=== PATIENT | female | born 1995 | race Caucasian/White ===

== ENCOUNTER 2018-01-15 00:32 | Outpatient (CLI) | payer MEDICAID, SELFPAY ==
--- NOTE | 2018-01-15 08:38 | DI.US_ITS ---
SYMPTOMS/DIAGNOSIS: DECREASED MOVEMENT, Z33.1 OB ULTRASOUND: Many abnormalities cannot be diagnosed. A normal exam does not exclude a congenital anomaly. Radiology No. [id number] LMP: Exam Date: 01/15/18 [facility] wks days on EDC ([facility]) 04/07/18 Confirmed: HISTORY: ---- PREDICTED GESTATIONAL AGE NUMBER 28+2 weeks with a range of 27+2 weeks to 29+2 weeks. 1 Determined by_X__1ST US___LMP___HISTORY Info. pertaining to fetus # PLACENTA PRESENTATION Grade I-II Cephalic_X__ Anterior___Posterior_X__ Breech____ Right Left Transverse(head right___ Fundal___Low-lying___Previa___ Transverse(head left___ Varying BIOMETRY AMNIOTIC FLUID BPD: 70 mm 28 weeks Normal HC: 261 mm 28+3 weeks AC: 234 mm 27+5 weeks FL: 54 mm 27+5 weeks AMNIOTIC FLUID INDEX >26 WK CRL: mm weeks Cisterna Magna: mm CI: 78 RUQ: 3.5 LUQ: 3.2 Cerebellum: cm EFW: 1188 grams Percentile: 33rd RLQ: 2.8 LLQ: 3.3 Total: 12.8 cm Composite AGE= 28+2 wks EDC by US: 04/07/18 BIOPHYSICAL PROFILE ANATOMY IDENTIFIED SCORE 0/2 Heart: 4-Chamber___Rate:BPM 160 LVOT: RVOT: Amniotic Fluid(>2cms)____ Stomach: Kidneys: Respirations (>30 secs) Bladder: Post. Fossa: Body Flex/Extension 3 vessel cord: Ventricles: cord insertion: Lips:____ Extremity Flex/Extension spinal morphology: Nose: Total Score= Palate: NS=not seen COMMENTS: OB ultrasound was performed utilizing third trimester protocol. biometry is consistent with gestational age of 28 weeks 2 days and an EDC of 04/07/18. The estimated weight is 1188 g, which is at the 33rd percentile for predicted gestational age. Placenta is posterior with no evidence of placenta previa. Normal quantity of amniotic fluid observed and the RUPESH is 13. cardiac activity observed at a rate of 160 bpm. There was reportedly a question of decreased movement. Normal movement was observed throughout this examination.
[2018-01-15 08:47] LABS: HGB 12.3 g/dL (12.0-15.5); Mean Corp. HGB Concentration 34.2 g/dL (32.0-36.0); Mean Corpuscular Hemoglobin 33.3 pg (27.0-33.0); Mean Corpuscular Volume 97.6 fL (80-95); Mean Platelet Volume 10.6 fL (8.0-11.0); Platelet Count 234 x1000/uL (130-400); RBC 3.69 m/cumm (4.00-5.20); RBC Distribution Width 12.6 % (11.7-14.6); White Blood Cell Count 11.98 k/cumm (4.4-10.8)
[2018-01-15 08:52] LABS: Glucose,1 Hr (Glucola) 112 mg/dL (80-140)
== END 2018-01-15 00:52 ==
PROVIDERS: Nurse Practitioner Women's Health; PCP Family Medicine; Visit Provider Obstetrics & Gynecology
DX: Z34.93 Encounter for supervision of normal pregnancy, unspecified, third trimester (principal); O36.8131 Decreased fetal movements, third trimester, fetus 1
CPT/HCPCS: 36415; 76816; 82950; 85027

== ENCOUNTER 2018-01-26 10:09 | Emergency (ER) | payer MEDICAID, SELFPAY ==
[2018-01-26 10:11] VITALS: BP 139/75; PULSE 92; RESP 20; TEMP 36.8; O2SAT 100
--- NOTE | 2018-01-26 10:34 | W.ED.GENAD ---
Discharge Plan Disposition Patient Disposition: HOME Condition: Stable Discharge Details Chief Complaint: RespSymp Clinical Impression: URI (upper respiratory infection), Conjunctivitis Primary Care Provider: CHARLENE VENTURA ED Provider: Ramin Reynolds Home Meds and New Rx's Prescriptions: New erythromycin 5 mg/gram (0.5 %) ointment 0.5 inch OP QID 5 Days RF: 0 Continue albuterol sulfate 8.5 GM HFA aerosol inhaler 2 puff Inhalation ONCE RF: 0 PNV cmb#95-ferrous fumarate-FA [] 1 EACH tablet 1 ea PO DAILY 30 Days Qty: 30 RF: 6 ondansetron [Zofran ODT] 4 MG tablet,disintegrating 4 mg PO Q6H PRN 30 Days Qty: 30 RF: 1 hydroxyprogest(PF)(preg presv) 250 mg/mL (1 mL) oil 250 mg IM QWEEK Qty: 1 RF: 0 Discharge Instructions Instructions: Upper Respiratory Infection (ED), Conjunctivitis (ED) Additional Instructions: You may take acetaminophen as needed for any fever or discomfort otherwise stay well-hydrated and get plenty of rest during illness. Continue to place warm compresses on your affected eye and you may use pxtn-ibe-ktiudlc saline eyedrops to help with hydration. If you are not having improvement of your red eye symptoms in the next 24-48 hours you may begin the antibiotics at that time. Follow-up with your primary care provider if not improving over the next week otherwise return immediately to the emergency department for new or significant worsening of symptoms. Referrals: CHARLENE VENTURA [Primary Care Provider] - Medical Decision Making Patient presenting to the emergency department with chief complaint of left eye pain and cold symptoms. Patient states the started 3 days ago and feels that she may have caught the illness from her son. She is 30 weeks and called [facility] whom instructed her to get follow-up. Patient did call primary care office but they said they could see her this afternoon but she was concerned about driving to their office so came immediately to the emergency department. Physical exam does show injection of the medial aspect of the left, nasal congestion with sinus tenderness, and mild oropharynx posterior erythema, mild anterior cervical lymphadenopathy. Lungs are clear with no other symptoms. I feel more likely symptoms are viral in etiology and have no concern for bronchitis pneumonia or significant illness. Given that left eye does show some injection I discussed with patient risk versus benefit of antibiotics for conjunctivitis. I do feel that this is viral in etiology but patient was given prescription for erythromycin ointment but informed that she should wait 24-48 hours before beginning this as I do feel that her symptoms will resolve on their own and is self-limiting. Patient strongly encouraged to follow-up with primary care if not improving over the next week or to return for any new or significant worsening of symptoms. After discussion of diagnosis and plan of care patient has no further needs, questions, or concerns and states clear understanding to return to the emergency department for any worsening symptoms. HPI General Mode of arrival: ambulatory. Date/Time Provider Initiated Documentation: 01/26/18 10:17. Limitations to Documentation: no limitations. Information obtained by: patient and RN notes reviewed. History of Present Illness 22 year old F presents to the emergency department with the chief complaint of cough and cold symptoms, described as moderate, with intensity rated at 8. Quality is described as aching, Patient started experiencing this day(s) (3) and it has been constant. No relieving factors improve symptom(s), No exacerbating factors reported . Patient did receive the following treatments prior to arrival, none Related Data Home Medications Medication Instructions Recorded Confirmed albuterol sulfate 2 puff INHALATION ONCE inhaler 09/07/13 01/26/18 PNV cmb#95-ferrous fumarate-FA 1 ea PO DAILY 30 Days #30 tab 07/30/17 01/26/18 [] ondansetron [Zofran ODT] 4 mg PO Q6H PRN 30 Days #30 tab 08/20/17 01/26/18 hydroxyprogesterone (PF)( 250 mg IM QWEEK #1 ml 11/26/17 01/26/18 preserving) 250 mg/mL (1 mL) IM oil erythromycin 0.5 inch OP QID 5 Days gm 01/26/18 Previous Rx's Medication Instructions Recorded PNV cmb#95-ferrous fumarate-FA 1 ea PO DAILY 30 Days #30 tab 07/30/17 [] ondansetron [Zofran ODT] 4 mg PO Q6H PRN 30 Days #30 tab 08/20/17 hydroxyprogesterone (PF)( 250 mg IM QWEEK #1 ml 11/26/17 preserving) 250 mg/mL (1 mL) IM oil erythromycin 0.5 inch OP QID 5 Days gm 01/26/18 Allergies Allergy/AdvReac Type Severity Reaction Status Date / Time Penicillins Allergy Severe Anaphylaxsi Verified 01/26/18 10:15 s ibuprofen [From Advil] Allergy Intermediate Bloody Verified 01/26/18 10:15 Diarrhea latex Allergy Unknown Skin Rash Verified 01/26/18 10:15 all cillins Allergy Severe analphylatic Uncoded 01/26/18 10:15 shock General Stated Complaint: RespSymp AISSATOU: 3 Review of Systems Constitutional Denies chills, Denies fever(s) and Reports malaise ENT Denies otalgia, Denies hoarseness, Reports nasal congestion, Reports sinus pressure and Reports sore throat Cardiovascular Denies chest pain and Denies dyspnea Respiratory Reports cough and Denies dyspnea Gastrointestinal Denies abdominal pain Musculoskeletal Denies joint swelling Integumentary/Breasts Denies rash PFSH Family History Son Age: 4y 3m VSD (ventricular septal defect) Other Diabetes Essential hypertension Neurofibromatosis syndrome Medical History Asthma Irritable colon ulcer Social History household members: spouse, children and other details: 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 Her son Tavares attends number of children: 1 Smoking/Tobacco Use Status: Former Tobacco Use pack-years: 9 passive smoking exposure: No alcohol intake: never substance use type: does not use seatbelt use: always Surgical History removal ovarian cyst Exam Const General: cooperative, comfortable and no acute distress Orientation: alert, awake and oriented x3 HENMT Head: normal to inspection, normocephalic and atraumatic Ears: hearing grossly normal bilaterally, external ears normal and TM's normal bilaterally General nose exam: external nose normal and nares normal Face and sinus: sinus tenderness maxillary Mouth: oral mucosae normal and tongue normal Throat: abnormal tonsil bilaterally erythema (mild) and posterior oropharynx abnormal erythema (mild) Eyes General: appearance normal, both eyes and all related structures Alignment and Position: alignment normal Periorbital: periorbital findings normal Conjunctivae: conjunctival abnormality left conjunctival injection localized (lower half) Sclera: scleral abnormality left scleral injection medial Cornea: corneas normal Pupils: PERRL Neck Neck: normal visual inspection, full ROM, meningismus present, lymphadenopathy (Anterior cervical) and no JVD Resp Effort & Inspection: normal respiratory effort, able to speak in complete sentences, no audible wheezes, cough Quality of cough: actively coughing and not labored Auscultation: clear to auscultation bilaterally Cardio Rate: regular rate Rhythm: regular rhythm Heart Sounds: S1 normal and S2 normal Skin General skin exam: no rashes or lesions noted and dry skin Rashes: no rashes Neuro General: alert, awake, oriented x3 and gait normal Course Vital Signs Temperature 36.8 C 01/26/18 10:11 Pulse 92 H 01/26/18 10:11 Respiratory Rate 20 01/26/18 10:11 Blood Pressure 139/75 01/26/18 10:11 Pulse Oximetry 100 01/26/18 10:11 Temperature 36.8 C 01/26/18 10:11 Temperature Source Temporal Artery Scan 01/26/18 10:11 Pulse 92 H 01/26/18 10:11 Respiratory Rate 20 01/26/18 10:11 Respiratory Effort Non-Labored 01/26/18 10:11 Blood Pressure 139/75 01/26/18 10:11 Pulse Oximetry 100 01/26/18 10:11 Oxygen Delivery Method Room Air 01/26/18 10:11 Oxygen Flow Rate 0 01/26/18 10:11 Pain Level 8 01/26/18 10:11
[2018-01-26 11:19] VITALS: BP 139/75; PULSE 92; RESP 20; TEMP 36.8; O2SAT 100
== END 2018-01-26 10:59 | disposition home or self-care (01) ==
LOC: ER 11:02
PROVIDERS: Emergency Provider Nurse Practitioner Family; PCP Family Medicine
DX: J06.9 Acute upper respiratory infection, unspecified (principal); H10.32 Unspecified acute conjunctivitis, left eye; Z87.891 Personal history of nicotine dependence
CPT/HCPCS: 99283

== ENCOUNTER 2018-02-09 09:36 | Observation (INO) | payer MEDICAID, SELFPAY ==
[2018-02-09] MEDS: Lactated Ringers 1,000 ML 150 ML IV (12:13)
[2018-02-09] MEDS: Calcium Carbonate *TUMS* 500 MG CHEW PO (12:24)
[2018-02-09] MEDS: Betamet Acet/Betamet Na Ph Inj. 30 MG/5 ML 12 MG IM (12:25)
== END 2018-02-09 17:00 | disposition home or self-care (01) ==
PROVIDERS: Admitting Provider Advanced Practice Midwife; PCP Family Medicine; Visit Provider Advanced Practice Midwife
DX: O60.03 Preterm labor without delivery, third trimester (principal); Z3A.31 31 weeks gestation of pregnancy
CPT/HCPCS: 96360; 96361; 96372; G0378; J0702

== ENCOUNTER 2018-02-10 12:44 | Outpatient (CLI) | payer MEDICAID, SELFPAY ==
--- NOTE | 2018-02-10 11:48 | DI.US_ITS ---
Many abnormalities cannot be diagnosed. A normal exam does not exclude a congenital anomaly. Radiology No. LMP: Exam Date: 02/10/18 [facility] wks days on EDC ([facility]) Confirmed: HISTORY: DIGITAL EXAM POSITIV FOR UNEXPECTED EFFACEMENT, H/O DELIVERY, Z87.51 ---- PREDICTED GESTATIONAL AGE NUMBER weeks with a range of week to weeks. 1 Determined by___1STUS___LMP___HISTORY Info. pertaining to fetus # PLACENTA PRESENTATION Grade I-II Cephalic__X_ Anterior___Posterior__X_ Breech____ Right Left Transverse(head right___ Fundal___Low-lying___Previa___ Transverse(head left___ Varying BIOMETRY AMNIOTIC FLUID BPD: mm weeks Normal HC: mm weeks Oligo Polyhydramnios AC: mm weeks FL: mm weeks AMNIOTIC FLUID INDEX >26 WK CRL: mm weeks Cisterna Magna: mm CI: RUQ: LUQ Cerebellum: cm EFW: grams Percentile RLQ: LLQ Total: cms Composite AGE= wks EDC by US BIOPHYSICAL PROFILE ANATOMY IDENTIFIED SCORE 0/2 Heart: 4-Chamber___Rate:BPM___133__ LVOT: RVOT: Amniotic Fluid(>2cms)____ Stomach: Kidneys: Respirations (>30 secs) Bladder: Post. Fossa: Body Flex/Extension 3 vessel cord: Ventricles: cord insertion: Lips:____ Extremity Flex/Extension spinal morphology: Nose: Total Score= Palate: NS=not seen OB ultrasound was performed utilizing limited protocol for measurement of cervical length. There is no fluid in the cervical canal. Cervical length is estimated at 41 mm. Fetus is in cephalic presentation.
== END 2018-02-10 13:04 ==
PROVIDERS: PCP Family Medicine; Visit Provider Advanced Practice Midwife
DX: Z87.51 Personal history of pre-term labor (principal); O09.213 Supervision of pregnancy with history of pre-term labor, third trimester; O36.8131 Decreased fetal movements, third trimester, fetus 1
CPT/HCPCS: 76815

== ENCOUNTER 2018-02-18 01:28 | Outpatient (CLI) | payer MEDICAID, SELFPAY ==
--- NOTE | 2018-02-18 10:44 | DI.COMBO_ITS ---
SYMPTOM/DIAGNOSIS: SERIAL GROWTH SCAN, BMI 37-37.9. CERVICAL LENGTH CHECK Z87.51 OB ULTRASOUND: 02/18/18 OB ultrasound was performed utilizing 3rd trimester protocol. Additional specific scanning was performed to evaluate cervical length. Cervical length is measured at between 3.6 and 3.9 cm. The placenta is posterior with no evidence of placenta previa. biometry is consistent with gestational age of 33 weeks 2 days and an EDC of 04/06/18. Estimated weight is 2016 grams which is at the 23rd percentile for predicted gestational age. The amniotic fluid index is 12 and there is visually a normal quantity of amniotic fluid. The fetus is in the cephalic presentation. cardiac activity observed at a rate of 147 BPM. Many abnormalities cannot be diagnosed. A normal exam does not exclude a congenital anomaly. Radiology No. [id number] LMP: Exam Date: 02/18/18 [facility] wks days on EDC ([facility]) 04/06/18 Confirmed: HISTORY: RUPESH/ WT ---- PREDICTED GESTATIONAL AGE NUMBER 33 weeks with a range of 32 week to 34 weeks. 1 Determined by_XX__1STUS___LMP___HISTORY Info. pertaining to fetus # PLACENTA PRESENTATION Grade I - II Cephalic_X__ Anterior___Posterior__XX_ Breech____ Right Left Transverse(head right___ Fundal___Low-lying___Previa___ Transverse(head left___ Varying BIOMETRY AMNIOTIC FLUID BPD: 84 mm 33 +5 weeks Normal HC: 307 mm 34 +1 weeks AC: 278 mm 31 +6 weeks FL: 64 mm 33 +1 weeks AMNIOTIC FLUID INDEX >26 WK CRL: mm weeks Cisterna Magna: mm CI: 0.8 RUQ:_3.68 LUQ__4.44 Cerebellum: cm EFW: 2015 grams 23% Percentile RLQ:_2.47 LLQ__1.68 Total:____12.3__cms Composite AGE= 33 +2 wks EDC by US___04/06/18 BIOPHYSICAL PROFILE ANATOMY IDENTIFIED SCORE 0/2 Heart: 4-Chamber___Rate:BPM___147__ LVOT: RVOT: Amniotic Fluid(>2cms)____ Stomach:__XX Kidneys: Respirations (>30 secs) Bladder:___XX Post. Fossa: Body Flex/Extension 3 vessel cord: Ventricles: cord insertion: Lips:____ Extremity Flex/Extension spinal morphology: Nose: Total Score= Palate: NS=not seen
== END 2018-02-18 01:48 ==
PROVIDERS: PCP Family Medicine; Visit Provider Advanced Practice Midwife
DX: Z34.93 Encounter for supervision of normal pregnancy, unspecified, third trimester (principal); O09.213 Supervision of pregnancy with history of pre-term labor, third trimester; Z68.37 Body mass index [BMI] 37.0-37.9, adult
CPT/HCPCS: 76815; 76816

== ENCOUNTER 2018-02-19 14:48 | Outpatient (REF) | payer MEDICAID, SELFPAY ==
[2018-02-19 15:04] LABS: Fetal Fibronectin Negative (Negative)
== END 2018-02-19 15:08 ==
LOC: LBN 14:48
PROVIDERS: PCP Family Medicine; Visit Provider Nurse Practitioner
DX: Z34.93 Encounter for supervision of normal pregnancy, unspecified, third trimester (principal); Z36.89 Encounter for other specified antenatal screening
CPT/HCPCS: 82731

== ENCOUNTER 2018-02-26 11:55 | Outpatient (REF) | payer MEDICAID, SELFPAY | END 2018-02-26 12:15 | LOC: LBN 11:55 | PROVIDERS: PCP Family Medicine; Visit Provider Nurse Practitioner | DX: Z34.93 Encounter for supervision of normal pregnancy, unspecified, third trimester (principal); Z36.85 Encounter for antenatal screening for Streptococcus B; Z88.0 Allergy status to penicillin | CPT/HCPCS: 87081 ==

== ENCOUNTER 2018-03-11 14:47 | Outpatient (REF) | payer MEDICAID, SELFPAY | END 2018-03-11 15:07 | LOC: LBN 14:47 | PROVIDERS: PCP Family Medicine; Visit Provider Advanced Practice Midwife | DX: O26.899 Other specified pregnancy related conditions, unspecified trimester (principal); R30.0 Dysuria; Z34.93 Encounter for supervision of normal pregnancy, unspecified, third trimester; Z36.85 Encounter for antenatal screening for Streptococcus B | CPT/HCPCS: 87081; 87086 ==

== ENCOUNTER 2018-03-25 12:17 | Observation (INO) | payer MEDICAID, SELFPAY ==
[2018-03-25 17:31] LABS: Bilirubin Small (Negative); Blood Negative (Negative); Clarity Clear; Glucose Negative (Negative); Ketones Trace mg/dL (Negative); Leukocyte Esterase Negative (Negative); Nitrite Negative (Negative); Specific Gravity >= 1.030 (1.005-1.025); Urobilinogen 0.2 EU/dL (Up TO 0.2)
[2018-03-25 17:39] LABS: Bacteria Few HPF (Negative); C & S Indicated? C&S Done As Ordered; Casts Negative LPF (Negative); Crystals Negative HPF (Negative); Epithelial Cells Few HPF (Negative); Mucus Moderate (Negative); RBC Negative (0-2); WBC 0-2 HPF (0-5)
== END 2018-03-25 16:45 | disposition home or self-care (01) ==
PROVIDERS: Admitting Provider Advanced Practice Midwife; PCP Family Medicine; Visit Provider Advanced Practice Midwife
DX: O47.1 False labor at or after 37 completed weeks of gestation (principal); Z3A.38 38 weeks gestation of pregnancy
CPT/HCPCS: 81003; 81015; 87086; G0378

== ENCOUNTER 2018-03-27 23:00 | Observation (INO) | payer MEDICAID, SELFPAY | END 2018-03-28 01:20 | disposition home or self-care (01) | PROVIDERS: Admitting Provider Advanced Practice Midwife; PCP Family Medicine; Visit Provider Advanced Practice Midwife | DX: O47.1 False labor at or after 37 completed weeks of gestation (principal); Z3A.38 38 weeks gestation of pregnancy; R82.90 Unspecified abnormal findings in urine | CPT/HCPCS: G0378 ==

== ENCOUNTER 2018-04-02 09:52 | Outpatient (CLI) | payer MEDICAID, SELFPAY | END 2018-04-02 10:12 | PROVIDERS: PCP Family Medicine; Visit Provider Advanced Practice Midwife | DX: O36.8130 Decreased fetal movements, third trimester, not applicable or unspecified (principal); Z3A.39 39 weeks gestation of pregnancy | CPT/HCPCS: 59025 ==

== ENCOUNTER 2018-04-04 15:08 | Inpatient (IN) | payer MEDICAID, SELFPAY ==
[2018-04-04 16:14] LABS: HCT 38.7 % (36.0-46.0); HGB 13.3 g/dL (12.0-15.5); Mean Corp. HGB Concentration 34.4 g/dL (32.0-36.0); Mean Corpuscular Hemoglobin 32.3 pg (27.0-33.0); Mean Corpuscular Volume 93.9 fL (80-95); Platelet Count 248 x1000/uL (130-400); RBC 4.12 m/cumm (4.00-5.20); RBC Distribution Width 12.5 % (11.7-14.6); White Blood Cell Count 13.14 k/cumm (4.4-10.8)
[2018-04-04] MEDS: Acetaminophen 325 MG TAB 650 MG PO (21:48)
[2018-04-04] MEDS: Hamamelis Leaf/Glycerin 100 EACH BOX PR (21:49)
[2018-04-05 07:21] LABS: HGB 11.5 g/dL (12.0-15.5); Mean Corp. HGB Concentration 33.8 g/dL (32.0-36.0); Mean Corpuscular Hemoglobin 32.1 pg (27.0-33.0); Mean Platelet Volume 11.5 fL (8.0-11.0); Platelet Count 220 x1000/uL (130-400); RBC 3.58 m/cumm (4.00-5.20); RBC Distribution Width 12.5 % (11.7-14.6); White Blood Cell Count 17.62 k/cumm (4.4-10.8)
[2018-04-05] MEDS: Docusate Sodium 100 MG CAP PO ×2 (08:22→18:11)
[2018-04-05] MEDS: Acetaminophen 325 MG TAB 650 MG PO ×2 (11:01→18:11)
[2018-04-05] MEDS: Milk of Magnesia 30 ML CUP PO (19:42)
[2018-04-06 06:52] VITALS: TEMP 36.8
[2018-04-06] MEDS: Acetaminophen 325 MG TAB 650 MG PO (06:52)
== END 2018-04-06 14:00 | disposition home or self-care (01) | DRG 807 ==
PROVIDERS: Admitting Provider Nurse Practitioner; PCP Family Medicine; Visit Provider Nurse Practitioner
DX: O99.284 Endocrine, nutritional and metabolic diseases complicating childbirth (principal); Z37.0 Single live birth; O99.214 Obesity complicating childbirth; Z3A.39 39 weeks gestation of pregnancy; E03.9 Hypothyroidism, unspecified; E66.9 Obesity, unspecified
CPT/HCPCS: 36415; 85027; 86850; 86900; 86901; J2590

== ENCOUNTER 2018-05-03 18:32 | Outpatient (REF) | payer MEDICAID, SELFPAY ==
[2018-05-05 13:39] LABS: Chlamydia Result Negative; GC Result Negative; Specimen Description CERVIX
== END 2018-05-03 18:52 ==
LOC: LBN 18:32
PROVIDERS: PCP Family Medicine; Visit Provider Advanced Practice Midwife
DX: N76.0 Acute vaginitis (principal); R10.2 Pelvic and perineal pain
CPT/HCPCS: 87491; 87591; 87086; 87480; 87510; 87660

== ENCOUNTER 2018-06-01 15:28 | Outpatient (REF) | payer MEDICAID, SELFPAY ==
--- NOTE | 2018-06-01 13:50 | PAPFT_PTH ---
PATIENT: FILIPE KEITH LOC: [facility] U#:[id number] AGE/SX: 22/F ROOM: RE06/01/[address]: Marley Grande RN : 1995 BED: DIS: 06/01/2018 SPEC #: [id number] RECD: 06/01/18 17:42 STATUS: [place] #: [id number] TABATHA: 06/01/18 13:[address]: Marley Grande DEPT: [facility] Cytology RECD BY: Radha Negrete ENTERED: 06/01/18 17:42 SP TYPE: PAPFT OTHR DR: Lazaro Saez Tissues: 1 - CX/ENDOCX FOR PAP SMEARS Procedures: PAP THIN PREP/UVM Screening HPV DNA PROBE Comments: [id number]
== END 2018-06-01 15:48 ==
LOC: LBN 15:28
PROVIDERS: PCP Family Medicine; Visit Provider Advanced Practice Midwife
DX: Z12.4 Encounter for screening for malignant neoplasm of cervix (principal)
CPT/HCPCS: 88142; 87624

== ENCOUNTER 2018-07-30 12:03 | Outpatient (REF) | payer MEDICAID, SELFPAY | END 2018-07-30 12:23 | LOC: LBN 12:03 | PROVIDERS: PCP Family Medicine; Visit Provider Nurse Practitioner Family | DX: R30.0 Dysuria (principal) | CPT/HCPCS: 87086 ==

== ENCOUNTER 2018-12-18 09:17 | Emergency (ER) | payer MEDICAID, SELFPAY ==
[2018-12-18 09:24] VITALS: BP 123/73; PULSE 89; RESP 18; TEMP 36.5; O2SAT 100
--- NOTE | 2018-12-18 09:28 | ED.GENADUL_ITS ---
Discharge Plan Disposition Patient Disposition: HOME Condition: Stable Discharge Details Chief Complaint: EarProblem Clinical Impression: Acute effusion of left ear, Pharyngitis, Rash Primary Care Provider: Lazaro Saez ED Provider: Lashay Wise Home Meds and New Rx's Prescriptions: New azithromycin [Zithromax Z-Mihir] 250 mg tablet See Rx Instructions .ROUTE .COMPLEX Qty: 6 RF: 0 methylprednisolone [Medrol (Mihir)] 4 mg tablets,dose pack See Rx Instructions .ROUTE .COMPLEX Qty: 21 RF: 0 Continued albuterol sulfate 8.5 GM HFA aerosol inhaler 2 puff Inhalation ONCE RF: 0 Discharge Instructions Instructions: Pharyngitis (ED), Otitis Media (ED), Acute Rash (ED) Additional Instructions: Drink plenty of fluids and get plenty of rest. Alternate Tylenol and Motrin as needed and directed for pain. Take the steroids until finished. If you have no improvement of symptoms in the next 2 days, you may start the antibiotics. As for your left leg rash, try huja-fve-ajhjwrf cortisone twice daily to the affected area. If you have no relief, you can try jhho-icl-vjrmctm Lotrimin which can help with a fungal skin infection such as ringworm. Follow-up with your primary care doctor next week. Return immediately to the emergency department if you develop any worsening or new concerning symptoms. Discharge Data Discharge Physician: Lashay Wise Medical Decision Making 23yo female presents with bilateral ear pain, worse on the left side, with sore throat over the past few weeks. Vitals within normal limits. Patient appears nontoxic. Left ear mildly dull with clear yellow effusion behind TM. Right TM within normal limits. No signs of otitis externa. No drooling, trismus, submandibular swelling, peritonsillar abscess. Lungs clear. Rapid strep negative. Appears consistent likely with viral URI. Patient will likely benefit from low-dose steroids to help with inflammation which can help clear fluid within the ears and help with sore throat. Also sent with a pres cription for antibiotics if her symptoms do not improve over the next 2 days with steroids. She also complained of a left thigh rash which appears c/w a contact dermatitis versus tinea corporis. She is advised to start with cortisone and then if no relief Lotrimin. She is advised to drink plenty of fluids, get plenty of rest, take kjfq-jqk-qlozuma symptomatic treatment such as cough and cold medication, Tylenol Motrin. She is advised to follow-up with a primary care doctor return here if worse. Medical Records Medical records reviewed: Yes I reviewed the patient's medical records. Lab Data Lab results reviewed: Yes I reviewed the patient's lab results. HPI General Mode of arrival: ambulatory . Date/Time Provider Initiated Documentation: 12/18/18 09:22 . Limitations to Documentation: no limitations . Information obtained by: patient . HPI Narrative: Patient is a 23-year-old female with history of asthma presents with bilateral ear pain, worse on left as well as sore throat for the past 2 weeks. She has tried cough and cold medication without relief. She was unable to get an appointment with her primary care doctor. She denies any known fever. She does admit to occasional nasal green mucus and occasional cough with green sputum but denies any shortness of breath, chest pain, headache or neck pain. She also stated for the past few days she noticed a itchy red rash to her left inner thigh. She denies any known tick bite, new soaps, lotions, detergents, meds or other new exposures. She denies any pain with the rash. Related Data Home Medications Medication Instructions Recorded Confirmed albuterol sulfate 2 puff INHALATION ONCE inhaler 09/07/13 12/18/18 azithromycin [Zithromax Z-Mihir] See Rx Instructions .ROUTE 12/18/18 .COMPLEX #6 tab methylprednisolone [Medrol (Mihir)] See Rx Instructions .ROUTE 12/18/18 .COMPLEX #21 dose pk Previous Rx's Medication Instructions Recorded azithromycin [Zithromax Z-Mihir] See Rx Instructions .ROUTE 12/18/18 .COMPLEX #6 tab methylprednisolone [Medrol (Mihir)] See Rx Instructions .ROUTE 12/18/18 .COMPLEX #21 dose pk Allergies Allergy/AdvReac Type Severity Reaction Status Date / Time Penicillins Allergy Severe Anaphylaxsi Verified 12/18/18 09:27 s ibuprofen [From Advil] Allergy Intermediate Bloody Verified 12/18/18 09:27 Diarrhea latex Allergy Unknown Skin Rash Verified 12/18/18 09:27 lactose AdvReac Diarrhea Verified 12/18/18 09:27 and cramping all cillins Allergy Severe analphylatic Uncoded 12/18/18 09:27 shock General Stated Complaint: EarProblem AISSATOU: 4 Review of Systems Review of Systems ROS Unobtainable: All systems reviewed & are unremarkable except as noted in HPI and below Constitutional Constitutional: Reports as per HPI, Denies chills and Denies fever(s) Eyes Eyes: Denies blurry vision ENT Ears, Nose, Mouth, and Throat: Denies dizziness, Reports otalgia, Reports sore throat and Denies throat swelling Cardiovascular Cardiovascular: Denies chest pain and Denies dyspnea Respiratory Respiratory: Denies cough and Denies dyspnea Gastrointestinal Gastrointestinal: Denies abdominal pain, Denies diarrhea and Denies vomiting Genitourinary Genitourinary: Denies hematuria and Denies dysuria Musculoskeletal Musculoskeletal: Denies back pain and Denies numbness Integumentary/Breasts Skin/Breast: Denies lesions and Denies rash Neurologic Neurologic: Denies dizziness, Denies focal weakness and Denies numbness Allergic/Immunologic Allergic/Immunologic: Denies throat swelling PFS Medical History Asthma Contraception (Acute) Hypothyroidism (Acute 07/27/13) Irritable colon ulcer (Resolved) Surgical History removal ovarian cyst Family History Son Age: 5 VSD (ventricular septal defect) Other Diabetes Essential hypertension Neurofibromatosis syndrome Social History Smoking/Tobacco Use Status: Former Tobacco Use Pack-years: 9 Alcohol Intake: never Drug use: Never Substance use type: does not use Household members: spouse, children and other 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 Her son Tavares attends Number of Children: 1 Do you think of yourself as: straight/heterosexual Current gender identity: female What type of physical activity do you participate in: none Seatbelt use: always Do you feel safe in your relationship?: Yes History History 5 Para 2 Hx # Term Pregnancies 0 Multiple births Hx # Pregnancies 1 Ectopic pregnancies AB induced Hx Number of Living Children 2 AB spontaneous 2 Past Pregnancies Del. Date GA/Weeks # Outcome Route Wgt Sex Labor Lgth Anesthes ia Location Prov Complic Unknown 10/04/13 36 Successful vaginal 3.345 kg Male N [facility] 04/04/18 39 No Successful vaginal 3.118 kg Female Pretty [facility] Delivery Date: On 01/15/18 @ 19:31 Kiya Bruce [place] diagnosed with VSD after delivery evaluated hospital for several days has not required surgery. Delivery Date: 10/04/13 On 12/17/17 @ 10:07 Aga SOTELO,Joann PTL s/s 1 week prior to delivery Delivery Date: 04/04/18 No notes to display Exam Const General: cooperative, healthy appearing and no acute distress [facility] Head: normal to inspection Ears: hearing grossly normal bilaterally, external ears normal and TM abnormal dull on the left and wth effusion (clear yellow, Left side) General nose exam: external nose normal Face and sinus: normal facial exam Mouth: oral mucosae normal Throat: uvula midline, no peritonsillar masses and posterior oropharynx abnormal erythema (minimal b/l tonsils) Eyes General: appearance normal, both eyes and all related structures Neck Neck: normal visual inspection Resp Effort & Inspection: normal respiratory effort and able to speak in complete sentences Auscultation: clear to auscultation bilaterally Cardio Rate: regular rate Skin Full body images: 1. 4 x 8 cm erythematous scaly rash with minimal central clearing and darker erythematous border on left medial thigh. There is no induration, fluctuance, drainage or bleeding. Neuro General: alert, awake and oriented x3 Motor: muscle tone normal throughout Extrem General: normal to inspection and full ROM Psych Appearance: grossly normal Affect: normal affect Course Vital Signs Vital signs: Vital Signs Temperature 97.7 F 12/18/18 09:24 Pulse 89 12/18/18 09:24 Respiratory Rate 18 12/18/18 09:24 Blood Pressure 123/73 12/18/18 09:24 Pulse Oximetry 100 12/18/18 09:24 Temperature 97.7 F 12/18/18 09:24 Temperature Source Skin 12/18/18 09:24 Pulse 89 12/18/18 09:24 Respiratory Rate 18 12/18/18 09:24 Blood Pressure 123/73 12/18/18 09:24 Blood Pressure Position Sitting 12/18/18 09:24 Pulse Oximetry 100 12/18/18 09:24 Oxygen Delivery Method Room Air 12/18/18 09:24 Oxygen Flow Rate 0 12/18/18 09:24
== END 2018-12-18 10:28 | disposition home or self-care (01) ==
PROVIDERS: Emergency Provider Physician Assistant; PCP Family Medicine
DX: H92.12 Otorrhea, left ear (principal); J02.9 Acute pharyngitis, unspecified; R21 Rash and other nonspecific skin eruption
CPT/HCPCS: 87880; 99283; 87081

== ENCOUNTER 2018-12-24 16:19 | Emergency (ER) | payer SELFPAY ==
[2018-12-24] VITALS (69 sets, daily range): BP systolic 98–154; BP diastolic 45–74; PULSE 72–131; RESP 11–46; TEMP 37.2–38.2; O2SAT 97–100
[2018-12-24] MEDS: Ondansetron O.D.T. 4 MG TABEF PO (16:57)
[2018-12-24 17:01] LABS: Lactate 1.5 mmol/L (0.6-1.4)
[2018-12-24] MEDS: Normal Saline 1,000 ML 1000 ML IV ×2 (17:02→21:32)
[2018-12-24 17:07] LABS: Abs Immature Grans 0.02 k/cumm (0.0-0.09); Absolute Basophil Count 0.03 k/cumm (0.0-0.2); Absolute Eosinophil Count 0.01 k/cumm (0.0-0.7); Absolute Lymphocyte Count 0.78 k/cumm (1.2-3.4); Absolute Neutrophil Count 9.44 k/cumm (1.2-6.7); Basophils % 0.3; Eosinophils % 0.1; HCT 41.1 % (36.0-46.0); HGB 14.2 g/dL (12.0-15.5); Immature Grans % 0.2; Mean Corp. HGB Concentration 34.5 g/dL (32.0-36.0); Mean Corpuscular Hemoglobin 31.7 pg (27.0-33.0); Mean Corpuscular Volume 91.7 fL (80-95); Mean Platelet Volume 10.9 fL (8.0-11.0); Neutrophils % 84.4; Platelet Count 196 x1000/uL (130-400); RBC 4.48 m/cumm (4.00-5.20); RBC Distribution Width 11.6 % (11.7-14.6); White Blood Cell Count 11.19 k/cumm (4.4-10.8)
[2018-12-24] MEDS: ACETAMINOPHEN 1,000 MG/100 ML BTL 400 MG IVPB (17:07)
[2018-12-24 17:14] LABS: PTT Activated 26.5 sec (21.0-31.4); Prothrombin Time 9.9 sec (9.3-11.0)
[2018-12-24 17:16] LABS: ALT 39 U/L (14-59); AST 16 U/L (15-37); Albumin 3.4 g/dL (3.4-5.0); Alkaline Phosphatase 79 U/L (46-116); Anion Gap 12.8 mmol/L (3-11); BUN 7 mg/dL (7-18); Bilirubin, Total 0.8 mg/dL (0.2-1.0); CO2 23.2 mmol/L (21.0-32.0); CREATININE 0.88 mg/dL (0.55-1.02); Calcium 9.1 mg/dL (8.5-10.1); Chloride 101 mmol/L (98-107); Glucose 96 mg/dL (70-100); Lipase 97 U/L (73-393); Potassium 3.5 mmol/L (3.5-5.1); Sodium 137 mmol/L (136-145); Total Protein 7.8 g/dL (6.4-8.2)
[2018-12-24 17:29] LABS: HCG Qual (Serum) Negative
--- NOTE | 2018-12-24 17:33 | ED.GENADUL_ITS ---
Discharge Plan Disposition Patient Disposition: HOME Condition: Improving Discharge Details Chief Complaint: Abd Prob Clinical Impression: IBS (irritable bowel syndrome) Primary Care Provider: Lazaro Saez ED Provider: Meek Cote Home Meds and New Rx's Prescriptions: No Action albuterol sulfate 8.5 GM HFA aerosol inhaler 2 puff Inhalation ONCE RF: 0 polyethylene glycol 3350 [Miralax] 17 gram/dose Powder 17 g PO DAILY PRNRF: 0 dicyclomine [Bentyl] 10 mg/mL Solution 20 mg IM Q6H RF: 0 Discharge Instructions Instructions: Irritable Bowel Syndrome (ED) Additional Instructions: Home to rest. Continue small, frequent sips of fluids to maintain hydration. Follow-up with Dr. Sae[facility] to review all your final test results. Recommend you minimize use of recently prescribed Bentyl. Return for any acute concerns. Discharge Data Discharge Date/Time-TO BE ENTERED AT DEPARTURE: 12/25/18 06:32 Medical Decision Making <QUIANA Feliciano - Last Filed: 12/27/18 08:09> This is a 23-year-old patient with a history of celiac disease as well as IBS. These are well known to the patient. Patient reports chronic diarrhea which is not unchanged. History of having colonoscopies in the past. Patient reports ultimately that she is concerned with onset of abdominal pain, malaise and feeling febrile which began last evening, worsened at approximately midnight. Specifically pain is reportedly about 8 out of 10 at this time periumbilical with radiation to her back. Patient reports changes in her baseline diarrhea specifically a pasty type bowel movement. Patient reports persistent sensation of needing to defecate and having mild discomfort when attempting to defecate. Patient did take laxatives x2 in attempt to relieve this. Patient does report mucousy bowel movement. Patient does have known hemorrhoids. No bleeding rectally. Patient's initial evaluation reveals mild tachycardia, abdominal pain diffusely on exam without obvious peritoneal signs. Patient is afebrile. Labs ordered in conjunction with CT of her abdomen as she previously spoke with her GI doctor who recommended she come to the ER for concern of bowel obstruction. Patient offered Tylenol and Zofran. IV fluids or GERD given her tachycardia. Patient's EKG reveals normal axis with a rate of 113, sinus tachycardia. Reviewed with my attending Dr. Mckee. Patient CT ultimately is unremarkable. Did evaluate a rectal exam with nurse in the room which does reveal obvious hemorrhoids internally and externally. No thrombosis of the external hemorrhoids. No rectal bleeding. No obvious stool in the vault of the rectum. Patient reevaluated and noted to be persistently tachycardic. Patient does report shortness of breath and sensation of difficulty getting a full breath. Given patient's tachycardia which is persistent after IV fluid in conjunction with her complaints I will add d-dimer given her risk factors. Patient is on control. We will give additional IV fluid pending d-dimer. <Meek Cote MD - Last Filed: 12/25/18 07:47> Patient signed out to me by Adore Quispe. She had a negative CT scan of the chest. She had mild persistent tachycardia, low-grade fever of 38 degrees. She was seen in consultation by Dr. Bunn from the hospitalist service. He elicited a history of recent initiation of dicyclomine, including a dose just prior to presentation. The anticholinergic effects of this may be driving a mild tachycardia in addition to a developing viral syndrome, mild exacerbation of IBS.. Patient received additional parenteral analgesia and fluids. She continued to improve. Her pulse corrected to the mid 80s. She was observed over multiple hours in the ED. she will be discharged home, will ask her to follow-up in clinic with Dr. Saez for recheck. HPI <QUIANA Feliciano - Last Filed: 12/27/18 08:09> General Date/Time Provider Initiated Documentation: 12/24/18 16:20 . HPI Narrative: This is a 23-year-old patient with a history of IBS and celiac disease who presents to the ER for 24 hours of abdominal pain. Patient reports history of chronic diarrhea however beginning last evening had onset of malaise associated with periumbilical abdominal discomfort approximately 8 out of 10. Patient reports she was able to get to sleep but then awoke at approximately midnight with increase in her abdominal pain which did not allow her to get back to sleep. Patient reports she called her GI doctor who she sees regularly who recommended coming to the emergency room for concern of possible bowel obstruction. Patient reports sensation of rectal discomfort and has the urge to defecate however has pain when attempting to defecate. Patient reports nausea and vomiting present. Temperature of 102 reported this morning. Patient did try taking laxatives x2 without relief of her abdominal pain or without associated bowel movement. Patient reports moderate mucus and loose paced type of bowel movements which is different than her typical watery bowel movement. Denies any blood in the bowel movement. Patient reports accompanying back pain present in the mid lower back bilaterally. Denies urinary urgency, frequency or dysuria. No recent upper respiratory symptoms. No other concerns or complaints. Related Data Home Medications Medication Instructions Recorded Confirmed albuterol sulfate 2 puff INHALATION ONCE inhaler 09/07/13 12/18/18 polyethylene glycol 3350 [Miralax] 17 g PO DAILY PRN 12/24/18 12/24/18 dicyclomine [Bentyl] 20 mg IM Q6H 12/25/18 12/25/18 Allergies Allergy/AdvReac Type Severity Reaction Status Date / Time Penicillins Allergy Severe Anaphylaxsi Verified 12/18/18 09:27 s ibuprofen [From Advil] Allergy Intermediate Bloody Verified 12/18/18 09:27 Diarrhea latex Allergy Unknown Skin Rash Verified 12/18/18 09:27 lactose AdvReac Diarrhea Verified 12/18/18 09:27 and cramping all cillins Allergy Severe analphylatic Uncoded 12/18/18 09:27 shock General Stated Complaint: Abd Prob AISSATOU: 3 Review of Systems <QUIANA Feliciano - Last Filed: 12/27/18 08:09> Review of Systems ROS Unobtainable: All systems reviewed & are unremarkable except as noted in HPI and below Constitutional Constitutional: Reports chills, Reports fever(s), Denies headache(s) and Reports malaise ENT Ears, Nose, Mouth, and Throat: Denies headache(s) and Denies sore throat Respiratory Respiratory: Denies cough and Denies pain with cough Gastrointestinal Gastrointestinal: Reports abdominal pain, Reports cramping, Reports diarrhea, Reports loose stools, Reports nausea and Reports vomiting Genitourinary Genitourinary: Denies hematuria, Denies urinary frequency and Denies urinary urgency Neurologic Neurologic: Denies headache(s) PFSH <QUIANA Feliciano - Last Filed: 12/27/18 08:09> Medical History Asthma Contraception (Acute) Hypothyroidism (Acute 07/27/13) Irritable colon ulcer (Resolved) Surgical History removal ovarian cyst Social History Smoking/Tobacco Use Status: Former Tobacco Use Pack-years: 9 Alcohol Intake: never Drug use: Never Substance use type: does not use Household members: spouse, children and other 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 Her son Tavares attends Number of Children: 1 Do you think of yourself as: straight/heterosexual Current gender identity: female What type of physical activity do you participate in: none Seatbelt use: always Do you feel safe at home: Yes Do you feel safe in your relationship?: Yes History History 2 5 Para 2 Hx # Term Pregnancies 0 Multiple births Hx # Pregnancies 1 Ectopic pregnancies AB induced Hx Number of Living Children 2 AB spontaneous 2 Past Pregnancies Del. Date GA/Weeks # Outcome Route Wgt Sex Labor Lgth Anesthes ia Location Prov Complic Unknown 10/04/13 36 Successful vaginal 3.345 kg Male N [facility] CN 04/04/18 39 No Successful vaginal 3.118 kg Female Pretty Salgado CNM Delivery Date: On 01/15/18 @ 19:31 Kiya Bruce Tavares diagnosed with VSD after delivery evaluated hospital for several days has not required surgery. Delivery Date: 10/04/13 On 12/17/17 @ 10:07 Joann Yung RN PTL s/s 1 week prior to delivery Delivery Date: 04/04/18 No notes to display Exam <QUIANA Feliciano - Last Filed: 12/27/18 08:09> Narrative Exam Narrative: CONST: Healthy appearing patient, in no acute distress. Well hydrated. Alert and alert. HENMT: Head nomocephalic, normal to inspection. Atraumatic. Hearing grossly normal. EYES: General normal appearance. Alignment normal. Eyelids normal. Conjunctiva normal. NECK: Normal visual inspection. FROM. Trachea midline. No Midline tenderness. CHEST: Normal insepection of the chest. RESP: Normal respiratory effort. Speaking full sentences. No cough. No audible wheezing. No retractions. CARDIO: No JVD. Abdomen; moderate diffuse abdominal tenderness with palpation. Bowel sounds are present in all 4 quadrants. No guarding. No rebound. Increased pain when laying flat MUSCULOSKELETAL: Normal Gait. FROM of all extremities. SKIN: Normal. Dry. No rashes. NEURO: Alert and awake. Speech clear. PSYCH: Normal affect. Cooperative. Course <QUIANA Feliciano - Last Filed: 12/27/18 08:09> Vital Signs Vital signs: Vital Signs Temperature 37.2 C 12/24/18 16:21 Pulse 124 H 12/24/18 16:21 Respiratory Rate 16 12/24/18 16:21 Blood Pressure 150/70 H 12/24/18 16:21 Pulse Oximetry 99 12/24/18 16:21 Temperature 37.2 C 12/24/18 16:21 Temperature Source Skin 12/24/18 16:21 Pulse 124 H 12/24/18 16:21 Respiratory Rate 16 12/24/18 16:21 Respiratory Effort Non-Labored 12/24/18 16:29 Blood Pressure 150/70 H 12/24/18 16:21 Blood Pressure Position Sitting 12/24/18 16:21 Pulse Oximetry 99 12/24/18 16:21 Oxygen Delivery Method Room Air 12/24/18 16:21 Oxygen Flow Rate 0 12/24/18 16:21 Lab/Test Results Lab/Test Results: Laboratory Tests Range/Units 12/24/18 12/24/18 12/24/18 16:46 16:46 16:46 WBC (4.4-10.8) k/cumm 11.19 H RBC (4.00-5.20) m/cumm 4.48 Hgb (12.0-15.5) g/dL 14.2 Hct (36.0-46.0) % 41.1 MCV (80-95) fL 91.7 MCH (27.0-33.0) pg 31.7 MCHC (32.0-36.0) g/dL 34.5 RDW (11.7-14.6) % 11.6 L Plt Count (130-400) x1000/uL 196 MPV (8.0-11.0) fL 10.9 Immature Gran % 0.2 Neutrophils % 84.4 Lymphocytes % 7.0 Monocytes % 8.0 Eosinophils % 0.1 Basophils % 0.3 Absolute Neutrophils (1.2-6.7) k/cumm 9.44 H Absolute Lymphocytes (1.2-3.4) k/cumm 0.78 L Absolute Monocytes (0.11-0.7) k/cumm 0.90 H Absolute Eosinophils (0.0-0.7) k/cumm 0.01 Absolute Basophils (0.0-0.2) k/cumm 0.03 PT (9.3-11.0) sec INR (0.9-1.1) APTT (21.0-31.4) sec Sodium (136-145) mmol/L 137 Potassium (3.5-5.1) mmol/L 3.5 Chloride (98-107) mmol/L 101 Carbon Dioxide (21.0-32.0) mmol/L 23.2 Anion Gap (3-11) mmol/L 12.8 H BUN (7-18) mg/dL 7 Creatinine (0.55-1.02) mg/dL 0.88 Estimated GFR/1.73 m2 (mL/min/1.73m2) >= 60.00 Glucose (70-100) mg/dL 96 Lactate (0.6-1.4) mmol/L 1.5 H Calcium (8.5-10.1) mg/dL 9.1 Total Bilirubin (0.2-1.0) mg/dL 0.8 AST (15-37) U/L 16 ALT (14-59) U/L 39 Alkaline Phosphatase (46-116) U/L 79 Total Protein (6.4-8.2) g/dL 7.8 Albumin (3.4-5.0) g/dL 3.4 Lipase (73-393) U/L 97 Serum HCG, Qual Range/Units 12/24/18 12/24/18 16:46 16:46 WBC (4.4-10.8) k/cumm RBC (4.00-5.20) m/cumm Hgb (12.0-15.5) g/dL Hct (36.0-46.0) % MCV (80-95) fL MCH (27.0-33.0) pg MCHC (32.0-36.0) g/dL RDW (11.7-14.6) % Plt Count (130-400) x1000/uL MPV (8.0-11.0) fL Immature Gran % Neutrophils % Lymphocytes % Monocytes % Eosinophils % Basophils % Absolute Neutrophils (1.2-6.7) k/cumm Absolute Lymphocytes (1.2-3.4) k/cumm Absolute Monocytes (0.11-0.7) k/cumm Absolute Eosinophils (0.0-0.7) k/cumm Absolute Basophils (0.0-0.2) k/cumm PT (9.3-11.0) sec 9.9 INR (0.9-1.1) 1.0 APTT (21.0-31.4) sec 26.5 Sodium (136-145) mmol/L Potassium (3.5-5.1) mmol/L Chloride (98-107) mmol/L Carbon Dioxide (21.0-32.0) mmol/L Anion Gap (3-11) mmol/L BUN (7-18) mg/dL Creatinine (0.55-1.02) mg/dL Estimated GFR/1.73 m2 (mL/min/1.73m2) Glucose (70-100) mg/dL Lactate (0.6-1.4) mmol/L Calcium (8.5-10.1) mg/dL Total Bilirubin (0.2-1.0) mg/dL AST (15-37) U/L ALT (14-59) U/L Alkaline Phosphatase (46-116) U/L Total Protein (6.4-8.2) g/dL Albumin (3.4-5.0) g/dL Lipase (73-393) U/L Serum HCG, Qual Negative Sign Out <QUIANA Feliciano - Last Filed: 12/27/18 08:09> Sign Out Data: Sign Out Comment: Follow-up pending hospitalist consultation by Dr. Bunn. Last updated by Abby Orellana PA at 12/25/18 00:22
[2018-12-24] MEDS: Omnipaque 350 MG/ML 100 ML BTL IJ ×2 (19:11→22:48)
--- NOTE | 2018-12-24 19:11 | DI.CT_ITS ---
EXAM: CT ABDOMEN PELVIS W CLINICAL HISTORY: abd pain, hx IBS. TECHNIQUE: CT examination of the abdomen and pelvis was carried out according to the usual protocol with intravenous administration 100 cc of Omnipaque 350. COMPARISON: CHEST FOR PULMONARY EMBOLUS from 07/10/2016 FINDINGS: The liver is normal. The gallbladder is normal. There are no stones or ductal dilatation. The pancrea s, spleen and adrenals and kidneys are normal. There is no evidence of bowel obstruction. The stomach is normal. There is no evidence of an acute appendix. There is no free air or free fluid in the int raperitoneal space. Abdominal aorta is unremarkable with no evidence of an aortic aneurysm. There is no lymphadenopathy. The bladder is unremarkable. The reproductive organs as visualized are unremarkable. No acute bony abnormality is seen. The soft tissues are unremarkable. IMPRESSION: No evidence of an acute abdomen or pelvis.
--- NOTE | 2018-12-24 19:44 | DI.VRAD_ITS ---
PROCEDURE INFORMATION: Exam: CT Abdomen and pelvis with contrast Exam date and time: 12/24/2018 7:02 PM Clinical history: 23 years old, female; Abdominal pain; Generalized; Prior surgery; Surgery date: 6+ months; Surgery type: Ovarian cyst TECHNIQUE: Imaging protocol: Computed tomography of the abdomen and pelvis with intravenous contrast. Radiation optimization: All CT scans at this facility use at least one of these dose optimization techniques: automated exposure control; mA and/or kV adjustment per patient size (includes targeted exams where dose is matched to clinical indication); or iterative reconstruction. Contrast material: [id number]; Contrast volume: 100 ml; Contrast route: IV LAC 20G; COMPARISON: US PELVIS TRANSVAG 05/09/2014 15:14 FINDINGS: Liver: Normal. No mass. Gallbladder and bile ducts: Normal. No calcified stones. No ductal dilation. Pancreas: Normal. No ductal dilation. Spleen: Normal. No splenomegaly. Adrenals: Normal. No mass. Kidneys and ureters: Normal. No hydronephrosis. Stomach and bowel: Unremarkable. No obstruction. No mucosal thickening. Appendix: No evidence of appendicitis. Intraperitoneal space: Unremarkable. No free air. No significant fluid collection. Vasculature: Unremarkable. No abdominal aortic aneurysm. Lymph nodes: Unremarkable. No enlarged lymph nodes. Bladder: Unremarkable as visualized. Reproductive: Unremarkable as visualized. Bones/joints: Unremarkable. No acute fracture. Soft tissues: Unremarkable. IMPRESSION: No acute findings. Dictated and Authenticated by: Heather Newell MD. Ordering:JOSE Mora MD
--- NOTE | 2018-12-24 20:09 | NUR.NOTE ---
Nursing Note: hand off report to DEEPAK Huggins
[2018-12-24 21:41] LABS: Bilirubin Negative (Negative); Blood Negative (Negative); Clarity Clear (Clear); Glucose Negative (Negative); Ketones Negative (Negative); Leukocyte Esterase Negative (Negative); Nitrite Negative (Negative); Specific Gravity <= 1.005 (1.005-1.025); Urobilinogen 0.2 EU/dL (Up TO 0.2)
[2018-12-24 21:57] LABS: D-Dimer 1055 ng/mlFEU (<500)
--- NOTE | 2018-12-24 22:57 | DI.CT_ITS ---
EXAM: CT CHEST PE CTA CLINICAL HISTORY: SOB, tachycardia r/o PE. TECHNIQUE: The study was carried out according to the usual protocol with an intravenous administrat ion of 80 cc of [id number]. COMPARISON: CT ABDOMEN PELVIS W from 12/24/2018 FINDINGS: There is no evidence of PE. The aorta is unremarkable. There are emphysematous changes in the periph yung of the lung bases. There is no evidence of a pneumothorax or pleural effusion. The heart is unre markable. There is no lymphadenopathy. Degenerative changes involving the thoracic spine are noted. The soft tissues are unremarkable. IMPRESSION: No acute abnormality is demonstrated and there is no evidence of PE. Emphysematous changes in the per iphery of the lung bases are new compared with the study of June 2016.
--- NOTE | 2018-12-24 23:12 | DI.VRAD_ITS ---
PROCEDURE INFORMATION: Exam: CT Angiography Chest With Contrast Exam date and time: 12/24/2018 10:50 PM Clinical history: 23 years old, female; Shortness of breath and tachypnea TECHNIQUE: Imaging protocol: Computed tomographic angiography of the chest with intravenous contrast. 3D rendering: MIP reconstructed images were created and reviewed. Radiation optimization: All CT scans at this facility use at least one of these dose optimization techniques: automated exposure control; mA and/or kV adjustment per patient size (includes targeted exams where dose is matched to clinical indication); or iterative reconstruction. Contrast material: [id number]; Contrast volume: 80 ml; Contrast route: IV LAC 20G; COMPARISON: CT CHEST FOR PULMONARY EMBOLUS 10/07/2016 08:09 FINDINGS: Pulmonary arteries: No evidence for pulmonary embolus. Aorta: Unremarkable. No aortic aneurysm. No aortic dissection. Lungs: Emphysematous changes in the periphery of the lung bases. Pleural space: Unremarkable. No pneumothorax. No pleural effusion. Heart: Unremarkable. No cardiomegaly. No pericardial effusion. Lymph nodes: Unremarkable. No enlarged lymph nodes. Bones/joints: Multilevel degenerative changes of the thoracic. Soft tissues: Unremarkable. IMPRESSION: 1. No acute findings. 2. Emphysematous changes in the periphery of the lung bases new compared with prior study June 2016. Dictated and Authenticated by: Heather Newell MD. Ordering:JOSE Mora MD
[2018-12-25] VITALS (31 sets, daily range): BP systolic 124–126; BP diastolic 62–78; PULSE 78–112; RESP 16–22; TEMP 36.6–36.7; O2SAT 95–99
--- NOTE | 2018-12-25 00:34 | MCONE_ITS ---
Date of service: 12/25/18 Time of Service: 00:34 Assessment and Plan Assessment and plan (1) Tachycardia: Status: Acute Assessment and plan: I think the most likely, and reasonable, explanation for the persistent sinus tachycardia is anticholinergic effect from the Dicyclomine, along with perhaps an element of anxiety and ongoing pain from (apparently) IBS. Suffice to say I see no other explanation and patient has had extensive evaluation. I would recommend also checking TSH and urine tox screen for completeness sake.It is also possible given the low grade fever (initially) that there is some infection brewing (note that patient tells me that her nose is starting to feel stuffy so perhaps a URI?). With a negative workup and a reasonable explanation for the tachycardia and otherwise stable vital signs I see no need for hospital admission. History of Present Illness History of Present Illness Chief Complaint: sinus tachycardia Narrative: 23 female with h/o IBS. Has been having flare of abdominal pain. Note that she has just recently been started on prn Dicyclomine for her IBS and she has taken two doses in the past 24 hours, the last just prior to her visit here. In ER she reported a number of complaints, including SOB, fever, back pain, in additiion to the more or less diffuse abdominal pain. States last BM earlier today.In ER initial findings included d-Dimerr 1055 and CTA was performed, which was negative. Workup has also included negative CT abdomen, negative urinalysis and marginal leukocytosis of 11.1. Initial temp here 38.2m afebrile since. O2 sats high 90s on RA.EKG sinus tach I was consulted due to to persistent low grade sinus tachycardia. 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 Date GA/Weeks # Outcome Route Wgt Sex Labor Lgth Anesthes ia Location Prov Complic Unknown 10/04/13 36 Successful vaginal 3.[address] [facility] CN 04/04/18 39 No Successful vaginal 3.118 kg Female Pretty Salgado,MARILYN Delivery Date: On 01/15/18 @ 19:31 Kiya Bruce Tavares diagnosed with VSD after delivery evaluated hospital for several days has not required surgery. Delivery Date: 10/04/13 On 12/17/17 @ 10:07 Aga SOTELO,Joann PTL s/s 1 week prior to delivery Delivery Date: 04/04/18 No notes to display Exam Narrative Exam Narrative: 125/62, 98-109 (during my exam), 36.6, 20, 97%. Appears somewhat anxious. HEENT AT/NC; neck supple; lungs clear; heart tachy/regularr; abdomen soft, NT; pelvic/rectal deferred; extremities no edema; neuro Ox3, non-focal Results Last Vital Signs Temp 36.6 C 12/25/18 00:24 Pulse 104 H 12/25/18 00:09 Resp 20 12/25/18 00:10 BP 125/62 12/25/18 00:09 Pulse Ox 97 12/25/18 00:10 Labs Result diagrams: 12/24/18 16:46 12/24/18 16:46 Labs: Laboratory Results - last 24 hr 12/24/18 12/24/18 12/24/18 16:44 16:44 16:46 WBC RBC Hgb Hct MCV MCH MCHC RDW Plt Count MPV Immature Gran % Neutrophils % Lymphocytes % Monocytes % Eosinophils % Basophils % Absolute Neutrophils Absolute Lymphocytes Absolute Monocytes Absolute Eosinophils Absolute Basophils PT INR APTT D-Dimer 1055 H Sodium 137 Potassium 3.5 Chloride 101 Carbon Dioxide 23.2 Anion Gap 12.8 H BUN 7 Creatinine 0.88 Estimated GFR/1.73 m2 >= 60.00 Glucose 96 Lactate Calcium 9.1 Total Bilirubin 0.8 AST 16 ALT 39 Alkaline Phosphatase 79 Total Protein 7.8 Albumin 3.4 Lipase 97 Serum HCG, Qual Urine Color Urine Clarity Urine pH Ur Specific [place] Urine Protein Urine Ketones Urine Blood Urine Nitrite Urine Bilirubin Urine Urobilinogen Ur Leukocyte Esterase Urine Glucose Patient ABO/Rh Cancelled 12/24/18 12/24/18 12/24/18 16:46 16:46 16:46 WBC 11.19 H RBC 4.48 Hgb 14.2 Hct 41.1 MCV 91.7 MCH 31.7 MCHC 34.5 RDW 11.6 L Plt Count 196 MPV 10.9 Immature Gran % 0.2 Neutrophils % 84.4 Lymphocytes % 7.0 Monocytes % 8.0 Eosinophils % 0.1 Basophils % 0.3 Absolute Neutrophils 9.44 H Absolute Lymphocytes 0.78 L Absolute Monocytes 0.90 H Absolute Eosinophils 0.01 Absolute Basophils 0.03 PT 9.9 INR 1.0 APTT 26.5 D-Dimer Sodium Potassium Chloride Carbon Dioxide Anion Gap BUN Creatinine Estimated GFR/1.73 m2 Glucose Lactate 1.5 H Calcium Total Bilirubin AST ALT Alkaline Phosphatase Total Protein Albumin Lipase Serum HCG, Qual Urine Color Urine Clarity Urine pH Ur Specific [place] Urine Protein Urine Ketones Urine Blood Urine Nitrite Urine Bilirubin Urine Urobilinogen Ur Leukocyte Esterase Urine Glucose Patient ABO/Rh 12/24/18 12/24/18 16:46 21:26 WBC RBC Hgb Hct MCV MCH MCHC RDW Plt Count MPV Immature Gran % Neutrophils % Lymphocytes % Monocytes % Eosinophils % Basophils % Absolute Neutrophils Absolute Lymphocytes Absolute Monocytes Absolute Eosinophils Absolute Basophils PT INR APTT D-Dimer Sodium Potassium Chloride Carbon Dioxide Anion Gap BUN Creatinine Estimated GFR/1.73 m2 Glucose Lactate Calcium Total Bilirubin AST ALT Alkaline Phosphatase Total Protein Albumin Lipase Serum HCG, Qual Negative Urine Color Yellow Urine Clarity Clear Urine pH 5.0 Ur Specific [place] <= 1.005 Urine Protein Negative Urine Ketones Negative Urine Blood Negative Urine Nitrite Negative Urine Bilirubin Negative Urine Urobilinogen 0.2 Ur Leukocyte Esterase Negative Urine Glucose Negative Patient ABO/Rh
[2018-12-25] MEDS: Lactated Ringers 1,000 ML 1000 ML IV (00:52)
[2018-12-25 00:53] LABS: TSH 0.85 uIU/mL (0.36-3.74)
--- NOTE | 2018-12-25 01:26 | NUR.NOTE ---
12/25/18 @ 0000 Report recieved from DEEPAK Huggins; policy writer assumed care. QUIANA Avitia bedside. 12/25/18 @ 0020 Pt sitting on bed, tearful, lips dry/cracked, voices abdominal pain -10/30, states she hasnt slept since noon due to not feeling well and is anxious about her hour drive back home. pt is on monitoring and evaluation advisor with ST @ 114-120 on monitor. pt denies chest pain, does voices slight SOA that pt states may be anxiety related due to pain/exhaustion/dehydration. Will discuss findings with MD. 12/25/18 @ 0030 Dr Bunn bedside, policy writer reviewed meds with pt who states she has a new med that I forgot about that is bentyl and was taken 12/24/18 @ 1430ish. 12/25/18 @ 0045 Pt continues to be tearful voicing abdominal pain. Dr Cote consulted/advised with orders recieved (see MAR) policy writer reviewed orders with pt, updated on POC as instructed by that includes administering morphine/IVF, pt will rest and be observed in ED for apx 4 hours and reeval/discharge with pt verbalizing approval of POC. 12/25/18 @ 0050 morphine/IVF admin per MAR. pt resting on bed with eyes closed. will monitor. 12/25/18 @ 0115 pt resting with eyes closed, HR on monitor NSR @ 87. no distress noted. will monitor. Nursing Note:
--- NOTE | 2018-12-25 05:42 | NUR.NOTE ---
12/25/18 @ 0400 pt continues to rest with eyes closed with no distress noted. Pt will be discharged upon wakening per MD instructions. Nursing Note:
--- NOTE | 2018-12-25 06:26 | NUR.NOTE ---
12/25/18 @ 0615 pt awake, ate 1 sandwich and drank a glass of apple juice without incident. pt denies pain, denies nausea, vss/wnl. pt is ready for discharge. Nursing Note:
--- NOTE | 2018-12-25 08:34 | NUR.NOTE ---
Nursing Note: Vag path result came back positive for gardnerella. Dr. Cote unable to reach pt by phone. Letter was sent and the complete ED visit was faxed to [facility] for follow up. Suzanne Brewer.
[2018-12-28 12:40] LABS: Chlamydia Result Negative (Negative); GC Result Negative (Negative); Specimen Description CERVIX
== END 2018-12-25 06:32 | disposition home or self-care (01) ==
PROVIDERS: Physician Assistant; Emergency Provider Emergency Medicine; PCP Family Medicine
DX: K58.9 Irritable bowel syndrome, unspecified (principal); R00.0 Tachycardia, unspecified; K64.8 Other hemorrhoids; B96.89 Other specified bacterial agents as the cause of diseases classified elsewhere
CPT/HCPCS: 36415; 71275; 80053; 83690; 86900; 86901; 87491; 87591; 93005; 96361; 96374; 96375; 99252; 99283; 99285; 74177; 81003; 83605; 84443; 84703; 85025; 85379; 85610; 85730; 87480; 87510; 87660; 93010; J0131; J3490

== ENCOUNTER 2019-03-22 11:10 | Emergency (ER) | payer SELFPAY ==
[2019-03-22 11:51] VITALS: BP 145/77; PULSE 99; RESP 18; TEMP 37; O2SAT 100
[2019-03-22 13:00] VITALS: BP 134/70; PULSE 77; RESP 16; TEMP 37; O2SAT 97
--- NOTE | 2019-03-22 13:34 | ED.GENADUL_ITS ---
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 Please call women's wellness to schedule appointment soon as possible for follow-up. Your labs and exam are reassuring at this time. Findings are most consistent with heavy menses possibly associated with you having missed 2 weeks of your oral contraceptive pills. Please continue with oral contraception as previously prescribed. If you develop new or worsening symptoms please seek care urgently once again. Referrals: Kiya Bruce MD [ [facility] STAFF PHYSICIAN] - Lazaro Saez [Primary Care Provider] - Discharge Data Discharge Date/Time-TO BE ENTERED AT DEPARTURE: 03/22/19 15:21 Medical Decision Making Patient is a 23-year-old female presents today with concern for miscarriage. Kam chandler reports that she believes she may be approximately 7 weeks gestation. She reports that 2 months ago she had a normal menses. 1 month ago, had a shorter than typical menses. Patient is G5, P2. 1 year . She reports that in the interim between her last normal menses and the shorter 1, she missed 2 weeks of her control secondary to insurance issues picking up the medication. I subsequently gone back on her oral contraceptive. States that she began noting some bleeding this morning and cramping. States the cramping is worse than her typical menses. 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 Reports that she took 2 home test both of which were not positive or negative. She denies any fevers or chills. Has not had previous abdominal surgeries. On exam, patient is resting comfortably. Her abdomen is benign with no peritoneal findings. She has a small amount of blood on her menstrual pad. She does show photos of blood clots that she passed this morning. She reports she typically does not have clots associated with her menses. Vaginal exam revealed reveals small amount of blood in the vaginal vault. No clots are noted. No cervical motion tenderness. UPT negative. However, as the patient is quite concerned regarding possible miscarriage, we will obtain a qualitative hCG and baseline laboratory eval uation. Qualitative hCG is negative. Patient is not anemic. No leukocytosis. Labs otherwise without significant abnormality. Discussed these findings with the patient. We discussed that the change in her menstrual cycles may be associated with her missing 2 weeks of her oral contraceptive. I did advise that with the change in her menses and her concerns, she follow-up with women's wellness. We discussed new/worsening symptoms that should prompt her to seek care urgently once again. All of her questions or concerns were addressed and she is in agreement this plan.. HPI General Mode of arrival: ambulatory . Date/Time Provider Initiated Documentation: 03/22/19 13:25 . Limitations to Documentation: no limitations . Information obtained by: patient and RN notes reviewed . History of Present Illness 23 year old F presents to the emergency department with the chief complaint of Abdominal discomfort, vaginal bleeding, described as moderate and similar to prior episodes, Quality is described as aching (Describes as cramping), and is localized to the abdomen. Patient reports no radiation. Patient started experiencing this hour(s) and it has been constant ( Improving). No relieving factors improve symptom(s), No exacerbating factors reported . Patient notes no other symptoms.; denies chest pain, cough, fever/chills, headaches, loss of appetite, nausea/vomiting, rash, shortness of breath and weakness. Patient did receive the following treatments prior to arrival, none Related Data Home Medications Medication Instructions Recorded Confirmed albuterol sulfate 2 puff INHALATION ONCE inhaler 09/07/13 12/18/18 polyethylene glycol 3350 [Miralax] 17 g PO DAILY PRN 12/24/18 12/24/18 dicyclomine [Bentyl] 20 mg IM Q6H 12/25/18 12/25/18 norgestimate 0.25 mg-ethinyl 1 tab PO DAILY #84 tab 02/21/19 estradiol 35 mcg tablet Previous Rx's Medication Instructions Recorded norgestimate 0.25 mg-ethinyl 1 tab PO DAILY #84 tab 02/21/19 estradiol 35 mcg tablet Allergies Allergy/AdvReac Type Severity Reaction Status Date / Time Penicillins Allergy Severe Anaphylaxsi Verified 12/18/18 09:27 s ibuprofen [From Advil] Allergy Intermediate Bloody Verified 12/18/18 09:27 Diarrhea latex Allergy Unknown Skin Rash Verified 12/18/18 09:27 lactose AdvReac Diarrhea Verified 12/18/18 09:27 and cramping all cillins Allergy Severe analphylatic Uncoded 12/18/18 09:27 shock General Stated 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 AISSATOU: 3 Review of Systems Constitutional Constitutional: Reports as per HPI, Denies chills, Denies fatigue, Denies fever(s) and Denies headache(s) ENT Ears, Nose, Mouth, and Throat: Denies headache(s) Cardiovascular Cardiovascular: Reports as per HPI, Denies chest pain and Denies dyspnea Respiratory Respiratory: Reports as per HPI, Denies cough and Denies dyspnea Gastrointestinal Gastrointestinal: Reports as per HPI Musculoskeletal Musculoskeletal: Reports as per HPI and Denies back pain Integumentary/Breasts Skin/Breast: Reports as per HPI and Denies rash Neurologic Neurologic: Reports as per HPI and Denies headache(s) Endocrine Endocrine: Denies fatigue [facility] Medical History Asthma Contraception (Acute) Hypothyroidism (Acute 07/27/13) Irritable colon ulcer (Resolved) Surgical History removal ovarian cyst Social History Smoking/Tobacco Use Status: Former Tobacco Use Pack-years: 9 Alcohol Intake: never Drug use: Never Substance use type: does not use Household members: spouse, children and other Details: 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 Date GA/Weeks # Outcome Route Wgt Sex Labor Lgth Anesthes ia Location Prov Complic Unknown 10/04/13 36 Successful vaginal 3.345 kg Male N H CNM 04/04/18 39 No Successful vaginal 3.118 kg Female Pretty MARILYN Salgado Delivery Date: On 01/15/18 @ 19:31 Kiya Bruce [place] diagnosed with VSD after delivery evaluated hospital for several days has not required surgery. Delivery Date: 10/04/13 On 12/17/17 @ 10:07 Joann Yung RN PTL s/s 1 week prior to delivery Delivery Date: 04/04/18 No notes to display Exam Const General: cooperative, healthy appearing, comfortable, no acute distress and well developed Nutritional Appearance: well nourished and overweight Orientation: alert and awake HENMT Head: normal to inspection Mouth: moist mucous membranes Resp Effort & Inspection: normal respiratory effort, able to speak in complete sentences and no respiratory distress Auscultation: clear to auscultation bilaterally, no rales, no rhonchi and no wheezes Cardio Rate: regular rate Rhythm: regular rhythm Heart Sounds: S1 normal and S2 normal GI Inspection: normal to inspection, no abdominal wall ecchymosis, no edema and non-distended Palpation: soft, no hepatosplenomegaly, not firm, no guarding, not rigid and nontender Percussion: normal to percussion External Female Exam: external appearance normal and normal appearance of the urethra Speculum Exam - Vagina: normal appearance of the vagina (Patient does have a small amount of blood in the vaginal vault), normal vaginal discharge (Appearance consistent with menses), no foreign bodies, no lacerations, vaginal bleeding, No tissue present in vagina, no masses, no swelling and nontender Speculum Exam - Cervix: normal appearance of the cervix and nontender Bimanual Exam- Vagina & Uterus: normal bimanual exam, normal vaginal palpation, uterine size normal, No cervical tenderness and no cervical motion tenderness Bimanual Exam- Adnexa, other: normal adnexae, no adnexal masses and no tenderness OB/External & Speculum: no foreign bodies, no tissue noted in vagina and vaginal bleeding Back/Spine/Pelvis Back: no CVA tenderness Skin General skin exam: no rashes or lesions noted Trauma: no lacerations or abrasions Neuro General: alert and awake Cognition: normal cognition Speech: speech normal Gait: normal gait Psych Appearance: grossly normal and well kempt Mental Status: mental status grossly normal Speech and Movement: speech and movement normal Course Vital Signs Vital signs: Vital Signs Temperature 37.0 C 03/22/19 11:51 Pulse 99 H 03/22/19 11:51 Respiratory Rate 18 03/22/19 11:51 Blood Pressure 145/77 H 03/22/19 11:51 Pulse Oximetry 100 03/22/19 11:51 Temperature 37.0 C 03/22/19 13:00 Temperature Source Tympanic 03/22/19 13:00 Pulse 77 03/22/19 13:00 Respiratory Rate 16 03/22/19 13:00 Respiratory Effort 03/22/19 11:58 Blood Pressure 134/70 03/22/19 13:00 Blood Pressure Position Sitting 03/22/19 11:51 Pulse Oximetry 97 03/22/19 13:00 Oxygen Delivery Method Room Air 03/22/19 13:00 Oxygen Flow Rate 0 03/22/19 13:00 Lab/Test Results Lab/Test Results: POC- Test(urine) Negative
[2019-03-22 14:05] LABS: Abs Immature Grans 0.01 k/cumm (0.0-0.09); Absolute Basophil Count 0.04 k/cumm (0.0-0.2); Absolute Eosinophil Count 0.08 k/cumm (0.0-0.7); Absolute Lymphocyte Count 2.13 k/cumm (1.2-3.4); Absolute Monocyte Count 0.57 k/cumm (0.11-0.7); Absolute Neutrophil Count 4.97 k/cumm (1.2-6.7); Basophils % 0.5; HCT 44.1 % (36.0-46.0); HGB 14.9 g/dL (12.0-15.5); Immature Grans % 0.1; Lymphocytes % 27.3; Mean Corp. HGB Concentration 33.8 g/dL (32.0-36.0); Mean Corpuscular Hemoglobin 31.6 pg (27.0-33.0); Mean Corpuscular Volume 93.6 fL (80-95); Mean Platelet Volume 10.4 fL (8.0-11.0); Monocytes % 7.3; Neutrophils % 63.8; Platelet Count 253 x1000/uL (130-400); RBC 4.71 m/cumm (4.00-5.20); RBC Distribution Width 12.1 % (11.7-14.6)
[2019-03-22 14:16] LABS: ALT 40 U/L (14-59); AST 19 U/L (15-37); Albumin 3.4 g/dL (3.4-5.0); Alkaline Phosphatase 65 U/L (46-116); Anion Gap 8.2 mmol/L (3-11); BUN 7 mg/dL (7-18); Bilirubin, Total 0.5 mg/dL (0.2-1.0); CO2 27.8 mmol/L (21.0-32.0); CREATININE 0.67 mg/dL (0.55-1.02); Calcium 8.9 mg/dL (8.5-10.1); Chloride 105 mmol/L (98-107); Glucose 83 mg/dL (74-106); Potassium 4.1 mmol/L (3.5-5.1); Sodium 141 mmol/L (136-145); Total Protein 7.5 g/dL (6.4-8.2)
[2019-03-22 15:10] LABS: HCG Qual (Serum) Negative
== END 2019-03-22 15:21 | disposition home or self-care (01) ==
PROVIDERS: Emergency Provider Physician Assistant; PCP Family Medicine
DX: N92.5 Other specified irregular menstruation (principal)
CPT/HCPCS: 80053; 81025; 99282; 84703; 85025

== ENCOUNTER 2019-06-06 15:09 | Outpatient (REF) | payer SELFPAY ==
--- NOTE | 2019-06-06 14:30 | PAPFT_PTH ---
PATIENT: FILIPE KEITH LOC: [facility] U#:[id number] AGE/SX: 23/F ROOM: RE06/06/[address]: CHRIS Fine : 1995 BED: DIS: 06/06/2019 SPEC #: [id number] RECD: 06/06/19 17:43 STATUS: JOSEY RECaty #: [id number] TABATHA: 06/06/19 14:[address]: Kristin Gutierrez DEPT: [facility] Cytology RECD BY: Radha Negrete ENTERED: 06/06/19 17:43 SP TYPE: PAPFT OTHR DR: Lazaro Saez Tissues: 1 - CX/ENDOCX FOR PAP SMEARS Procedures: PAP THIN PREP/UVM Screening Comments: [id number]
== END 2019-06-06 15:29 ==
LOC: LBN 15:09
PROVIDERS: PCP Family Medicine; Visit Provider Nurse Practitioner Family
DX: Z12.4 Encounter for screening for malignant neoplasm of cervix (principal)
CPT/HCPCS: 88142